=== PATIENT | female | born 2000 | race Caucasian/White ===

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

== ENCOUNTER 2018-03-05 08:34 | Outpatient (CLI) | payer OTHER ==
[2012-10-03 16:06] VITALS: BP 121/42
[2018-03-05 08:54] LABS: BASOPHILS % 0.8 (0.0-1.5); EOSINOPHILS % 2.9 % (0.0-6.8); MEAN CORPUSCULAR HEMOGLOBIN 32.3 pg (28.0-34.0); MEAN CORPUSCULAR VOLUME 97.1 fl (80.0-100.0); MONOCYTES % 4.6 % (0.0-11.0); NEUTROPHILS # 3.2 # k/uL (1.4-7.7)
[2018-03-05 09:58] LABS: eGFR (African) > 60; eGFR (Non-African) > 60
== END 2018-03-05 08:44 ==
LOC: LAB 08:34
PROVIDERS: ATTEND Family Medicine
DX: R59.9 Enlarged lymph nodes, unspecified (principal); R11.0 Nausea; R63.4 Abnormal weight loss
CPT/HCPCS: 36415; 80053; 85025

== ENCOUNTER 2018-11-12 08:19 | Emergency (ER) | payer OTHER ==
[2018-11-12] MEDS ORDERED: [UNRECOGNIZED DRUG - MIXTURE] PO ONE ×2 (08:45)
--- NOTE | 2018-11-12 08:45 | ED Physician Documentation ---
General Adult - HISTORIAN Historian: patient - HPI Chief Complaint: General Adult Onset: other (last night) Further Comments: yes (18 year old female patient present with epigastric and chest discomfort. Patient reports intermittent chest pain, denies diaphoresis, denies radiation of pain, c/o SOB with walking "sometimes", states she felt nauseated twice yesterday - "not at the same time as my chest pain". Is taking her omeprazole PRN. Report waking up at night with sore taste in her mouth and burning in the back of her throat.) - ROS CONST: no problems EYES/ENT: none CVS/RESP: none (with above). denies: cough GI/: nausea. denies: vomiting, diarrhea MS/SKIN/LYMPH: none NEURO/PSYCH: denies: headache, fainting, dizziness, tingling, numbness, difficulty walking, difficulty with speech, anxiety, depression - PAST HX Past History: other (GERD, depression, anxiety) Allergies/Adverse Reactions: Allergies Allergy/AdvReac Type Severity Reaction Status Date / Time morphine AdvReac Itchy Skin Verified 11/12/18 08:33 Home Medications: Ambulatory Orders Medication Instructions Recorded Omeprazole 20 mg PO HS #30 capsule. 11/12/18 - SOCIAL HX Smoking History: non-smoker - FAMILY HX Family History: No - VITAL SIGNS Vital Signs: Vital Signs Temp Pulse Resp BP Pulse Ox 121/42 10/03/12 16:04 - REVIEWED ASSESSMENTS Nursing Assessment Reviewed: Yes Vitals Reviewed: Yes Progress - Progress Progress: Education on taking omeprazole daily as prescribed. Pain is likely due to GERD and non-compliance with medication directions. Patient medicated with GI cocktail. Pain resolved after GI cocktail. General Adult Physical Exam - PHYSICAL EXAM GENERAL APPEARANCE: [id number] N EENT: eye inspection normal, ENT inspection normal, pharynx normal, no signs of dehydration, [place]LEY, no nystagmus, TM's nml RESPIRATORY: no resp distress, breath sounds normal, other (chest wall tenderness with palpation) CVS: reg rate & rhythm, heart sounds normal, equal pulses, no murmur, no gallop, PMI nml, no JVD, no friction rub, 24 ABDOMEN: soft, no organomegaly, normal bowel sounds, no abdominal bruit, no distension, tenderness, other (positive Child's, epigastric tenderness) SKIN: normal color, warm/dry, NR, INT, PAL, DR EXTREMITIES: non-tender, normal range of motion, no evidence of injury, no edema, J, 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 Avoid lying down after meals. Avoid eating late at night. Elevate the head of your bed by 6 inches. You can do this by placing wooden blocks or bed risers under the head of your bed. Avoid wearing tight-fitting clothes. Avoid foods that might irritate your stomach, such as the following: Alcohol, Fat, fried and spicy foods. Condition: Stable Disposition: 01 HOME, SELF-CARE Decision to Admit: NO Decision Time: 08:57
[2018-11-12 09:57] VITALS: BP 107/67
== END 2018-11-12 09:30 | disposition home or self-care (01) ==
LOC: ED 08:19
DX: K21.9 Gastro-esophageal reflux disease without esophagitis (principal); Z91.14 Patient's other noncompliance with medication regimen
CPT/HCPCS: 93005; 99283; A9270